=== PATIENT | female | born 1950 | race Caucasian/White ===

== ENCOUNTER → 2019-05-31 13:16 | Outpatient (CLI) | payer MEDICARE, OTHER, SELFPAY ==
--- NOTE | 2019-05-31 | DI.ECHO.S_ITS ---
[facility] +---------+ [facility] +---------+ : : [address] : [address] : : : : [id number] : : : : Phone: [phone]+ Echocardiogram Report + + :Name: STEVE PAGAN Study Date: 05/31/2019 Height: 64 in : :[facility] Weight: 176 lb : : Gender: Female BSA: 1.9 m2 : :: 1950 Age: 69 yrs BP: 134/80 mmHg: :Reason For Study: Atrial fibrillation : : Performed By: Nilda Saucedo : :Referring: ELVIRA WILKERSON : + + Interpretation Summary 1) Normal left ventricular thickness, size, wall motion, and systolic function (EF 60-65%). 2) Grossly, normal right ventricular size and function. 3) There is mild aortic regurgitation. 4) No prior Echo available for comparison. Procedure: A two-dimensional transthoracic echocardiogram with color flow and Doppler was performed. The study quality was technically adequate. There is no prior echocardiogram noted for this patient. The patient was in normal sinus rhythm during the exam. Left Ventricle: The left ventricle is normal in size, wall thickness, and systolic function without any focal wall motion abnormalities. The ejection fraction is estimated to be 60-65%. Diastolic parameters suggest a relaxation abnormality of the left ventricle, consistent with probable normal filling pressures. Right Ventricle: The right ventricle grossly appears normal in size with probable normal systolic function. Atria: The left atrium is mildly dilated. Right atrial size is normal. The interatrial septum is intact with no evidence for an atrial septal defect. Mitral Valve: There is a flat closure plane of the the mitral valve leaflets. There is trace mitral regurgitation. Aortic Valve: The aortic valve is trileaflet. The aortic valve opens well. There is no aortic valve stenosis. There is mild aortic regurgitation. Tricuspid Valve: The tricuspid valve leaflets are thin and pliable. There is mild tricuspid regurgitation. The right ventricular systolic pressure is estimated to be at least 32 mmHg based on an estimated right atrial pressure of 3 mm Hg. Pulmonic Valve: The pulmonic valve is not well seen, but is grossly normal. There is trace pulmonic regurgitation. Great Vessels: The aortic root is normal size. The dimensions of the ascending aorta are normal. The aortic arch is normal in size. The IVC is of normal diameter and collapses greater than 50% with a sniff. This suggests a low right atrial pressure of 3 mm Hg. Pericardium/ Pleura There is no pericardial effusion. There is no pleural effusion. MMode/2D Measurements & Calculations LVIDd: 4.6 cm Ao root diam: 3.3 cm LVIDs: 2.8 cm Aortic Jxn: 2.5 cm FS: 40.2 % asc Aorta Diam: 3.3 cm EPSS: 0.21 cm Ao Arch Diam (Prox Trans): 2.8 cm IVSd: 1.0 cm LVPWd: 0.71 cm LV burleson. diameter/BSA (cm/m^2): 2.5 LV sys. diameter/BSA (cm/m^2): 1.5 LA dimension: 3.7 cm RA long axis: 5.2 cm LA A2 area: 21.7 cm2 RA area: 17.5 cm2 LA A4 area: 22.8 cm2 RA vol: 50.3 ml LA length (vol): 5.7 cm RA : 27.2 ml/m2 LA vol: 74.3 ml IVC diam: 1.6 cm LA vol index: 40.1 ml/m2 RVDd major: 5.4 cm RVD1 (basal): 3.5 cm RVD2 (mid): 2.8 cm Doppler Measurements & Calculations Ao V2 max: 147.3 cm/sec AI P1/2t: 632.2 msec Ao V2 mean: 97.7 cm/sec AI dec slope: 202.2 cm/sec2 Ao max P.7 mmHg Ao mean P.5 mmHg Ao V2 VTI: 32.0 cm MV E max kit: 93.4 cm/sec TR max kit: 267.8 cm/sec MV A max kit: 68.8 cm/sec TR max P.7 mmHg MV E/A: 1.4 PA V2 max: 102.3 cm/sec Med Peak E' Kit: 8.1 cm/sec PA V2 mean: 67.2 cm/sec E/E' med: 11.5 PA mean P.1 mmHg Lat Peak E' Kit: 10.5 cm/sec PA Accel Time: 0.17 sec E/E' lat: 8.9 E/e' average: 10.2 MV dec time: 0.14 sec MV P1/2t: 43.9 msec MV P1/2t max kit: 94.7 cm/sec MVA(P1/2t): 5.0 cm2 Reading Physician:09:[id number] AM
== END ==
PROVIDERS: Visit Provider Internal Medicine Cardiovascular Disease
DX: I08.2 Rheumatic disorders of both aortic and tricuspid valves (principal); I48.1 Persistent atrial fibrillation
CPT/HCPCS: 93306

== ENCOUNTER → 2019-08-03 07:24 | Outpatient (CLI) | payer MEDICARE, OTHER, SELFPAY ==
[2019-08-03 08:48] LABS: Add Manual Diff / Slide Review NO; Basophils Absolute Auto 100 /uL (0-100); Basophils Percent Auto 0.9 % (0-2); Eosinophils Absolute Auto 100 /uL (0-450); Eosinophils Percent Auto 2.5 % (2-4); Hematocrit 40.4 % (36-46); Hemoglobin 13.5 g/dL (12.0-16.0); Lymphocytes Absolute Auto 2400 /uL (1100-4500); Lymphocytes Percent Auto 42.8 % (25-40); Mean Corpuscular HGB Conc 33.4 % (30-36); Mean Corpuscular Hemoglobin 31.2 PG (26-34); Mean Corpuscular Volume 93.2 fL (80-100); Monocytes Absolute Auto 600 /uL (0-900); Monocytes Percent Auto 9.8 % (3-14); Neutrophils Absolute Auto 2500 /uL (1500-7000); Platelet Count 307 X10^3/uL (150-400); Red Blood Cell Count 4.34 X10^6/uL (4.0-5.2); Red Cell Distribution Width 13.4 % (11.6-14.8); White Blood Cell Count 5.7 X10^3/uL (4.5-11.0)
[2019-08-03 09:10] LABS: BUN Creatinine Ratio 26.3 (6-22); Blood Urea Nitrogen 21 mg/dL (7-17); Calcium 9.3 mg/dL (8.4-10.2); Carbon Dioxide 27 mmol/L (22-32); Chloride 106 mmol/L (98-107); Cholesterol 245 mg/dL (140-199); Estimated Glomerular Filt Rate > 60.0 mL/min (>60); Glucose 106 mg/dL (80-110); HDL Cholesterol 58 mg/dL (40-60); HEMOLYSIS < 15 (0-50); LDL Cholesterol Calculated 170 mg/dL (<100); Potassium 4.4 mmol/L (3.4-5.1); Sodium 140 mmol/L (137-145); Triglycerides 86 mg/dL (35-150)
== END ==
PROVIDERS: Visit Provider Internal Medicine Cardiovascular Disease
DX: E78.5 Hyperlipidemia, unspecified (principal); Z79.01 Long term (current) use of anticoagulants; I48.19 Other persistent atrial fibrillation
CPT/HCPCS: 36415; 80048; 80061; 85025

== ENCOUNTER → 2019-08-23 07:15 | Outpatient (CLI) | payer MEDICARE, OTHER, SELFPAY ==
--- NOTE | 2019-08-24 17:58 | DI.NM.S_ITS ---
DATE OF SERVICE: 08/23/2019 PROCEDURE PERFORMED: Exercise treadmill stress and rest myocardial perfusion imaging study with gating to assess ejection fraction and regional wall motion. ORDERING PROVIDER: Sharon Wilkerson MD INDICATIONS: The patient is a 69-year-old female with recent paroxysmal atrial fibrillation who may require type 1C anti-arrhythmic therapy. EXERCISE TREADMILL TESTING: The patient was able to exercise for 7 minutes 25 seconds on a standard Raul protocol suggesting very good exercise capacity with an YESSI of -26%. She had a normal heart rate and blood pressure response, achieving a maximum heart rate of 164 bpm (109% of her predicted maximum). She had no chest discomfort or other anginal symptoms. Her resting ECG shows sinus rhythm with normal ST segments. There are no significant ST-segment deviations or arrhythmias with stress. At 6 minutes 33 seconds of exercise, at heart rate of 162 bpm, 25.9 mCi of technetium-99 Myoview was injected and the patient was imaged 15 minutes later using a gated SPECT acquisition protocol. The patient returned the following day and was reinjected with an additional 25.9 mCi of technetium-99 Myoview and was imaged 30 minutes later, again using a gated SPECT acquisition protocol. FINDINGS: 1. Raw Data: There is fair myocardial tracer uptake with mild breast shadows noted across the anterior wall. The resting images have some mild motion which could introduce some artifact. The lung/heart ratio is normal at 0.37 with a normal TID ratio of 0.97. 2. Quantitative Gated SPECT: Post stress ejection fraction is estimated at 86% without any regional wall motion abnormality. Resting ejection fraction is 90%, likely an overestimate, with a end-diastolic volume of 79 mL. 3. Post stress supine images show a fairly normal perfusion pattern with a very subtle defect in the [id number] anterior wall consistent with breast attenuation artifact supported by its complete resolution on the prone images. There are no other perfusion defects. The resting images show an identical perfusion pattern with no areas of improvement. CONCLUSIONS: 1. Normal myocardial perfusion study. 2. Mild, fixed mid anterior perfusion defect that resolves on prone imaging consistent with breast attenuation artifact. There is no compelling evidence for any myocardial ischemia or previous myocardial infarction. 3. Normal left ventricular systolic function without focal wall motion abnormality. 4. Very good exercise capacity without angina or ECG evidence of ischemia. There were no arrhythmias. Kirstin James - RS/fn/ab doc#: [id number]/job#: [id number] dd: 08/24/2019 14:37:00 dt: 08/24/2019 17:43:00 DICTATING MD/COPIES TO: Eric Dela Cruz MD; Sharon Wilkerson MD COPIES MNE: EDUARDO DE LEON
== END ==
PROVIDERS: Visit Provider Internal Medicine Cardiovascular Disease
DX: I48.19 Other persistent atrial fibrillation (principal); R00.0 Tachycardia, unspecified; E78.5 Hyperlipidemia, unspecified; Z86.79 Personal history of other diseases of the circulatory system; Z79.01 Long term (current) use of anticoagulants
CPT/HCPCS: 78452; 93016; 93017; 93018; A9502

== ENCOUNTER → 2021-08-16 09:31 | Outpatient (CLI) | payer MEDICARE, OTHER, SELFPAY ==
[2021-08-16 11:05] LABS: Add Manual Diff / Slide Review NO; Basophils Absolute Auto 0 /uL (0-100); Basophils Percent Auto 0.7 % (0-2); Eosinophils Absolute Auto 200 /uL (0-450); Eosinophils Percent Auto 2.9 % (2-4); Hemoglobin 12.9 g/dL (12.0-16.0); Lymphocytes Absolute Auto 2300 /uL (1100-4500); Mean Corpuscular HGB Conc 34.7 % (30-36); Mean Corpuscular Hemoglobin 31.9 PG (26-34); Mean Corpuscular Volume 91.9 fL (80-100); Monocytes Absolute Auto 500 /uL (0-900); Monocytes Percent Auto 9.4 % (3-14); Neutrophils Absolute Auto 2700 /uL (1500-7000); Platelet Count 251 X10^3/uL (150-400); Red Blood Cell Count 4.02 X10^6/uL (4.0-5.2); Red Cell Distribution Width 13.6 % (11.6-14.8); White Blood Cell Count 5.6 X10^3/uL (4.5-11.0)
[2021-08-16 11:29] LABS: BUN Creatinine Ratio 15.6 (6-22); Blood Urea Nitrogen 12 mg/dL (7-17); Calcium 9.2 mg/dL (8.4-10.2); Carbon Dioxide 24 mmol/L (22-32); Chloride 109 mmol/L (98-107); Cholesterol 151 mg/dL (140-199); Estimated Glomerular Filt Rate > 60.0 mL/min (>60); Glucose 102 mg/dL (80-110); HDL Cholesterol 64 mg/dL (40-60); HEMOLYSIS < 15 (0-50); LDL Cholesterol Calculated 63 mg/dL (<100); Potassium 4.6 mmol/L (3.4-5.1); Sodium 140 mmol/L (137-145); Triglycerides 118 mg/dL (35-150)
== END ==
PROVIDERS: Referring Provider Internal Medicine Cardiovascular Disease; Visit Provider Internal Medicine Cardiovascular Disease
DX: E78.5 Hyperlipidemia, unspecified (principal); I47.1 Supraventricular tachycardia
CPT/HCPCS: 36415; 80048; 80061; 85025

== ENCOUNTER → 2021-09-12 12:51 | Outpatient (CLI) | payer MEDICARE, OTHER, SELFPAY ==
[2021-09-12 14:47] LABS: TSH w/ Reflex to FT4 1.28 uIU/mL (0.47-4.68)
[2021-09-13 17:18] LABS: Vitamin D 25 Hydroxy (D3) 44.8 ng/mL (30.0-100.0)
== END ==
PROVIDERS: Referring Provider Family Medicine; Visit Provider Family Medicine
DX: I47.1 Supraventricular tachycardia (principal); E55.9 Vitamin D deficiency, unspecified; Z83.49 Family history of other endocrine, nutritional and metabolic diseases; E66.9 Obesity, unspecified; Z68.30 Body mass index [BMI] 30.0-30.9, adult
CPT/HCPCS: 36415; 82306; 84443

== ENCOUNTER → 2025-08-17 09:35 | Outpatient (CLI) | payer MEDICARE, OTHER, SELFPAY ==
[2025-08-17 10:23] LABS: Influenza A - CEPHEID Flu A NEGATIVE (NEGATIVE); Influenza B - CEPHEID Flu B NEGATIVE (NEGATIVE)
[2025-08-17 10:37] LABS: COVID-19 CEPHEID 4-PLEX PCR Negative (Negative)
== END ==
LOC: LAB 09:36
PROVIDERS: Visit Provider Student in an Organized Health Care Education/Training Program
DX: R05.1 Acute cough (principal)
CPT/HCPCS: 87637

== ENCOUNTER → 2025-08-17 10:02 | Outpatient (CLI) | payer MEDICARE, OTHER, SELFPAY ==
--- NOTE | 2025-08-17 10:04 | DI.RAD.S_ITS ---
PROCEDURE: XR CHEST 2V INDICATIONS: cough, congestion for 10 days, fatigue TECHNIQUE: 2 views of the chest were acquired. COMPARISON: None. FINDINGS: Surgical changes and devices: None. Lungs and pleura: Lungs are clear. No pleural effusions or pneumothorax. Mediastinum: Mediastinal contours are normal. Heart size is normal. Bones and chest wall: No suspicious bony abnormalities. Soft tissues appear unremarkable. IMPRESSION: No acute cardiopulmonary pathology. Dictated by: Eddie Waddell M.D. on 08/17/2025 at 10:21 Approved by: Eddie Waddell M.D. on 08/17/2025 at 10:22
== END ==
PROVIDERS: PCP Family Medicine; Referring Provider Student in an Organized Health Care Education/Training Program; Visit Provider Student in an Organized Health Care Education/Training Program
DX: J06.9 Acute upper respiratory infection, unspecified (principal); R05.1 Acute cough; Z20.828 Contact with and (suspected) exposure to other viral communicable diseases
CPT/HCPCS: 71046; 87637